=== PATIENT | male | born 1970 | race Caucasian/White ===

== ENCOUNTER 2018-02-12 12:31 | Emergency (ER) | payer OTHER ==
[~2018-02-12] VITALS: Ht 180.3 cm; Wt 90.9 kg
[~2018-02-12 12:31] MED LIST: Vicodin,Lortab 5/500 PO
[2018-02-12 13:52] LABS: CHLORIDE 105 mEq/L (99-109); POTASSIUM 4.1 mEq/L (3.7-5.4); SODIUM 139 mEq/L (136-147)
[2018-02-12 13:53] LABS: GLUCOSE 93 mg/dL (70-99)
[2018-02-12 13:57] LABS: GFR ESTIMATE (CALCULATED) > 59 mL/min/ (58.99-99999)
[2018-02-12 13:58] LABS: UREA NITROGEN (BUN) 18 mg/dL (9-23)
[2018-02-12 14:57] VITALS: BP 113/80
== END 2018-02-12 15:01 | disposition home or self-care (01) ==
LOC: EME 12:31
PROVIDERS: Emergency Medicine
DX: M79.604 Pain in right leg (principal); F17.200 Nicotine dependence, unspecified, uncomplicated
CPT/HCPCS: 80048; 93971; 99281; 99284